=== PATIENT | male | born 1940 | race Caucasian/White ===

== ENCOUNTER 2025-02-03 23:31 | Inpatient (IN) | payer MEDICARE ==
[~2025-02-03] VITALS: Ht 182.9 cm; Wt 70.3 kg
[2025-02-04] VITALS (9 sets, daily range): BP systolic 114–145; BP diastolic 67–81; PULSE 91–102; RESP 16–21; TEMP 97.8–98.6; O2SAT 97–99
[2025-02-04] MEDS: WARFARIN SOD 2.5 MG TAB PO ONE (02:00)
[2025-02-04] MEDS ORDERED: ACETAMINOPHEN 325 MG TAB PO PRN ×2 (02:00→16:30)
[2025-02-04] MEDS ORDERED: WARFARIN SODIUM5 MG PO (04:53)
[2025-02-04] MEDS ORDERED: SIMVASTATIN80 MG PO (04:53)
[2025-02-04] MEDS: WARFARIN SOD 5 MG TAB ONE (05:20)
[2025-02-04 06:13] LABS: BASOPHILS % 0.6 % (0.0-1.0); EOSINOPHILS # (AUTO) 0.1 (0.0-0.4); EOSINOPHILS % 1.9 % (0.0-6.0); HEMATOCRIT 38.9 % (38.2-49.6); LYMPHOCYTES # (AUTO) 1.2 (1.0-3.2); LYMPHOCYTES % 22.1 % (18.0-39.1); MEAN CORPUSCULAR HEMOGLOBIN 31.6 pg (28-32); MEAN CORPUSCULAR HGB CONC 33.4 g/dL (31-35); MEAN CORPUSCULAR VOLUME 94.6 fL (81-99); MONOCYTES # (AUTO) 0.6 (0.2-0.8); MONOCYTES % 10.2 % (4.4-11.3); NEUTROPHILS # (AUTO) 3.5 (2.1-6.9); PLATELET COUNT 191 x10e3/uL (140-360); RED BLOOD COUNT 4.11 x10e6/uL (4.3-5.7); WHITE BLOOD COUNT 5.38 x10e3/uL (4.8-10.8)
[2025-02-04 06:37] LABS: ALBUMIN 3.2 g/dL (3.5-5.0); ALBUMIN/GLOBULIN RATIO 1.1 (0.8-2.0); ANION GAP 11.6 mmol/L (8-16); CALCIUM 8.7 mg/dL (8.4-10.2); CREATININE, SERUM 0.68 mg/dL (0.72-1.25); MAGNESIUM 1.7 MG/DL (1.3-2.1); POTASSIUM 3.6 mmol/L (3.5-5.1); TOTAL PROTEIN 6.2 g/dL (6.5-8.1)
[2025-02-04 06:47] LABS: TROPONIN I 0.006 ng/mL (0-0.300)
[2025-02-04 09:13] LABS: INR 2.02; PROTHROMBIN TIME 23.9 seconds (11.9-14.5)
[2025-02-04] MEDS ORDERED: POLYETHYLENE GLYCOL 3350 17 GM PACK PO PRN (16:30)
[2025-02-04] MEDS ORDERED: BISACODYL 10 MG SUPP PR PRN (16:30)
[2025-02-04] MEDS ORDERED: SIMVASTATIN 20 MG TAB PO SCH (21:00)
[2025-02-04] MEDS: ATORVASTATIN 10 MG TAB PO SCH (22:28)
[2025-02-04] MEDS: WARFARIN SOD 5 MG TAB PO SCH (22:28)
[2025-02-05 03:48] VITALS: BP 154/93; PULSE 91; RESP 18; TEMP 98.1; O2SAT 98
[2025-02-05 06:21] LABS: BASOPHILS % 0.2 % (0.0-1.0); EOSINOPHILS # (AUTO) 0.2 (0.0-0.4); EOSINOPHILS % 3.2 % (0.0-6.0); HEMATOCRIT 37.9 % (38.2-49.6); HEMOGLOBIN 12.9 g/dL (14.0-18.0); LYMPHOCYTES # (AUTO) 1.5 (1.0-3.2); LYMPHOCYTES % 29.3 % (18.0-39.1); MEAN CORPUSCULAR HEMOGLOBIN 32.2 pg (28-32); MEAN CORPUSCULAR VOLUME 94.5 fL (81-99); MONOCYTES # (AUTO) 0.6 (0.2-0.8); MONOCYTES % 12.9 % (4.4-11.3); NEUTROPHILS # (AUTO) 2.7 (2.1-6.9); PLATELET COUNT 181 x10e3/uL (140-360); RED BLOOD COUNT 4.01 x10e6/uL (4.3-5.7); RED CELL DISTRIBUTION WIDTH 13.2 % (11.7-14.4); WHITE BLOOD COUNT 4.95 x10e3/uL (4.8-10.8)
[2025-02-05 07:12] LABS: ANION GAP 11.9 mmol/L (8-16); CALCIUM 8.6 mg/dL (8.4-10.2); CREATININE, SERUM 0.78 mg/dL (0.72-1.25); POTASSIUM 3.9 mmol/L (3.5-5.1)
[2025-02-05 08:00] VITALS: BP 120/81; PULSE 113; RESP 20; TEMP 98.7; O2SAT 96
[2025-02-05 09:41] VITALS: BP 123/73; PULSE 95; RESP 18; TEMP 98.3; O2SAT 97
[2025-02-05 12:00] VITALS: BP 117/75; PULSE 104; RESP 19; TEMP 97.9; O2SAT 98
[2025-02-05] MEDS: DOCUSATE SODIUM 100 MG CAP PO SCH (13:01)
[2025-02-05] MEDS: SENNOSIDES 8.6 MG TAB PO SCH (13:01)
[2025-02-05] MEDS: DILTIAZEM HCL 30 MG TAB PO SCH (13:04)
[2025-02-05] MEDS ORDERED: IOPAMIDOL 370 MG/ML 100 ML INFUS..BTL INJ ONE (13:21)
[2025-02-05 16:00] VITALS: BP 115/68; PULSE 100; RESP 22; TEMP 98; O2SAT 97
[2025-02-05 20:00] VITALS: BP 115/72; PULSE 90; RESP 17; TEMP 98.2; O2SAT 97
[2025-02-05] MEDS: WARFARIN SOD 5 MG TAB PO SCH (20:13)
[2025-02-06] VITALS (7 sets, daily range): BP systolic 109–130; BP diastolic 62–73; PULSE 84–95; RESP 16–19; TEMP 98.2–98.5; O2SAT 95–100
[2025-02-06] MEDS ORDERED: CARDIZEM30 MG PO (13:09)
[2025-02-06] MEDS ORDERED: ATORVASTATIN CA10 MG PO (13:09)
== END 2025-02-06 14:50 | disposition home or self-care (01) | DRG 310 ==
LOC: MED/SURG2 02-04 00:48 → OBSVTOIN 02-04 18:21
PROVIDERS: ADMIT Internal Medicine; ATTEND Internal Medicine
DX: I48.0 Paroxysmal atrial fibrillation (principal); I49.1 Atrial premature depolarization; Z79.01 Long term (current) use of anticoagulants; R07.89 Other chest pain; J44.9 Chronic obstructive pulmonary disease, unspecified; J38.3 Other diseases of vocal cords; R05.3 Chronic cough; Z87.891 Personal history of nicotine dependence; Z86.718 Personal history of other venous thrombosis and embolism; Z85.21 Personal history of malignant neoplasm of larynx; Z92.3 Personal history of irradiation; Z86.711 Personal history of pulmonary embolism; Z79.899 Other long term (current) drug therapy
CPT/HCPCS: 36415; 71045; 71260; 80048; 80053; 83735; 84484; 85025; 85379; 85610; 85730; 93005; 99252; Q9967